=== PATIENT | male | born 1965 | race Two or more races ===

== ENCOUNTER 2023-04-04 15:27 | Emergency (ER) | payer OTHER ==
[~2023-04-04] VITALS: Ht 172.7 cm; Wt 96.2 kg
[2023-04-04] MEDS ORDERED: CYCLOBENZAPRINE10 MG PO (20:09)
[2023-04-04] MEDS ORDERED: NABUMETONE750 MG PO (20:09)
[2023-04-04] MEDS ORDERED: GABAPENTIN100 MG RECTAL (20:09)
== END 2023-04-04 21:00 | disposition home or self-care (01) ==
LOC: ER 15:28
DX: M51.26 Other intervertebral disc displacement, lumbar region (principal); M51.36 Other intervertebral disc degeneration, lumbar region